=== PATIENT | male | born 1975 | race Hispanic/Latino ===

== ENCOUNTER 2017-04-12 04:59 | Emergency (ER) | payer SELFPAY ==
[~2017-04-12] VITALS: Ht 175.3 cm; Wt 115.7 kg
[~2017-04-12 04:59] MED LIST: FLEXERIL10 MG PO; MOTRIN800 MG PO; TYLENOL #31 TAB PO
--- NOTE | 2017-04-12 06:14 | ED NECK/BACK PAIN COMPLAINT ---
History of Present Illness General Chief Complaint: Neck/Upper Back Pain/Injury Stated Complaint: BACK PAIN, NO KNOWN INJURY PER PT Source: patient Exam Limitations: no limitations Vital Signs & Intake/Output Vital Signs & Intake/Output Vital Signs Date Time Temp Pulse Resp B/P B/P Pulse O2 O2 Flow FiO2 Mean Ox Delivery Rate 04/12 0548 98 Room Air 04/12 524 97.8 74 16 110/67 97 Room Air Allergies Coded Allergies: No Known Allergies (04/12/17) Reconcile Medications CYCLOBENZAPRINE HCL (Flexeril) 10 MG TABLET 1 TAB PO Q8H PRN spasm/pain Avoid operating motor vehicle or heavy machinery Ibuprofen (Motrin) 800 MG TAB 1 TAB PO Q8H PRN PAIN Tylenol With Codeine (Tylenol With Codeine #3 Tablet) 1 EACH TABLET 1-2 TAB PO Q6 PRN pain Triage Note: MID/LOW BACK PAIN X1 MONTH. WORSE TODAY. TOOK IBUPROFEN YESTERDAY WITHOUT RELIEF. DENIES URINARY SYMPTOMS. Triage Nurses Notes Reviewed? yes Onset: Abrupt Duration: 1 MONTH Timing: recent history Location: LEFT PARASPINAL MUSCLES T/L SPINE Modifying Factors: movement Associated Symptoms: DYSPNEA HPI: 41 year old male presents with back pain for the past month. Pain is worse with movement, waking up from sleep last night. He has not been taking any medications. No fever, chills, chest pain, abdominal pain, dysuria, urgency. Denies any trauma. Patient does use weights for upper body strength. Last night he tried ibuprofen without relief. History of seizures but doesn't take medications because he is worried that his medications affect his liver. (MARIELA BOSS MD) Past History Travel History Traveled to [place] past 21 day No Medical History Any Pertinent Medical History? see below for history Neurological: seizure EENT: NONE Cardiovascular: NONE Respiratory: NONE Gastrointestinal: NONE Hepatic: NONE Renal: NONE Musculoskeletal: sciatica Psychiatric: NONE Endocrine: NONE Blood Disorders: NONE Cancer(s): NONE Surgical History Surgical History: non-contributory Psychosocial History What is your primary language Bulgarian Tobacco Use: Never used Family History Hx Contributory? No (MARIELA BOSS MD) Review of Systems Review of Systems Constitutional: Denies: chills, fever. Eyes: Reports: no symptoms. Ears, Nose, Throat, Mouth: Reports: no symptoms. Respiratory: Denies: cough, short of breath. Cardiovascular: Denies: chest pain. Gastrointestinal/Abdominal: Denies: abdominal pain, nausea, vomiting. Musculoskeletal: Reports: back pain, muscle pain, muscle stiffness. Denies: neck pain. Skin: Reports: no symptoms. Neurological/Psychological: Denies: numbness, paresthesia, weakness. All Other Systems: Reviewed and Negative (KARYN ROBERTS,MARIELA) Physical Exam Physical Exam General Appearance: well developed/nourished, alert, awake, mild distress Head: atraumatic Eyes: Bilateral: PERRL, EOMI. Ears, Nose, Throat, Mouth: hearing grossly normal Neck: normal inspection, supple, full range of motion Respiratory: normal breath sounds Cardiovascular: regular rate/rhythm Peripheral Pulses: 2+ radial (R), 2+ radial (L) Gastrointestinal: soft, non-tender Back: normal inspection Extremities: normal range of motion Neurologic/Psych: awake, alert, oriented x 3, normal mood/affect Skin: intact, normal color, warm/dry Diagram Body: 1) tender to palpation (KARYN ROBERTS,MARIELA) Progress Differential Diagnosis: herniated disc, myofascial strain, pyelo/UTI, PE, Plan of Care: Orders Procedure Date/time Status [facility] SED RATE 04/12 620 Complete D-DIMER 04/12 620 Complete COMPREHENSIVE METABOLIC PANEL 04/12 620 Complete CBC WITHOUT DIFFERENTIAL 04/12 620 Complete URINALYSIS 04/12 613 Complete Laboratory Tests 04/12/17 0730: Urine Color YEL, Urine Clarity CLEAR, Urine pH 6.0, Ur Specific Bynum 1.025, Urine Protein NEG, Urine Ketones NEG, Urine Nitrite NEG, Urine Bilirubin NEG, Urine Urobilinogen 0.2, Ur Leukocyte Esterase NEG, Ur Microscopic EXAM NOT REQUIRED, Urine Hemoglobin NEG, Urine Glucose NEG 04/12/17 0627: Anion Gap 12, Estimated GFR > 60, BUN/Creatinine Ratio 17.8, Glucose 89, Calcium 9.5, Total Bilirubin 0.6, AST 27, ALT 39, Alkaline Phosphatase 68, Total Protein 7.4, Albumin 4.1, Globulin 3.3, Albumin/Globulin Ratio 1.2, D-Dimer High Sensitivty < 200, CBC w Diff NO MAN DIFF REQ, RBC 5.20, MCV 88.2, MCH 29.5, RDW 14.3, MPV 9.2, Gran % 66.3, Lymphocytes % 23.2, Monocytes % 8.0, Eosinophils % 2.1, Basophils % 0.4, Absolute Granulocytes 9.0 H, Absolute Lymphocytes 3.2, Absolute Monocytes 1.1 H, Absolute Eosinophils 0.3, Absolute Basophils 0.1, PUBS MCHC 33.4, ESR Westergren 2 Hand-Off Endorsed To: TONYA CHILEL MD Endorsed Time: 712 Pending: labs (URINALYSIS) (MARIELA BOSS MD) Comments: Feels better updated with diagnostics. (TONYA CHILEL MD) Departure Departure Disposition: HOME OR SELF CARE Condition: Stable Referrals: PATIENT HAS NO PRIMARY CARE DR (PCP/Family) (MARIELA BOSS MD) Departure Time of Disposition: 811 Clinical Impression Primary Impression: Acute back pain Qualifiers: Back pain location: thoracic back pain Back pain laterality: left Qualified Code: M54.6 - Pain in thoracic spine Departure Forms: Customer Survey General Discharge Information RELEASE- WORK Prescriptions: Current Visit Scripts Ibuprofen 1 TAB PO Q6PRN PRN pain #50 TAB with food Baclofen 1-2 TAB PO TID PRN muscle strain #30 TAB Hydrocodone/Acetaminophen (Vicodin 5-300 MG Tablet) 1-2 TAB PO Q6P PRN severe pain #15 TAB (TONYA CHILEL MD)
[2017-04-12 06:40] LABS: ABSOLUTE BASOPHIL COUNT 0.1 /CUMM (0.0-0.2); ABSOLUTE EOSINOPHIL COUNT 0.3 /CUMM (0.0-0.7); ABSOLUTE LYMPH COUNT 3.2 /CUMM (1.2-3.4); ABSOLUTE MONOCYTE COUNT 1.1 /CUMM (0.10-0.60); BASOPHIL % 0.4 % (0.0-2.0); EOSINOPHIL % 2.1 % (0-5); GRANULOCYTE % 66.3 % (42.2-75.2); HEMATOCRIT 45.8 % (42-52); MEAN CORPUSCULAR HGB 29.5 PG (27.0-31.0); MEAN CORPUSCULAR HGB CONC 33.4 G/DL (33.0-37.0); MEAN CORPUSCULAR VOLUME 88.2 FL (80.0-94.0); MEAN PLATELET VOLUME 9.2 FL (7.4-10.4); PLATELET COUNT 226 /CUMM (130-400); RBC DISTRIBUTION WIDTH 14.3 % (11.5-14.5); WHITE BLOOD CELL COUNT 13.6 /CUMM (4.8-10.8)
[2017-04-12] MEDS ORDERED: BACLOFEN10 M1 PO (08:14)
[2017-04-12] MEDS ORDERED: IBUPROFEN600 M1 PO (08:14)
[2017-04-12] MEDS ORDERED: VICODIN 5-3001 EACH PO (08:14)
[2017-04-12 08:20] VITALS: BP 118/74
== END 2017-04-12 08:30 ==
LOC: ERH 04:59
PROVIDERS: Emergency Medicine
DX: M54.5 Low back pain (principal)
CPT/HCPCS: 81003; 96372; J1885